=== PATIENT | female | born 1995 | race Caucasian/White ===

== ENCOUNTER 2016-07-20 04:57 | Inpatient (IN) | payer OTHER ==
[~2016-07-20] VITALS: Ht 162.6 cm; Wt 73.0 kg
[2016-07-20] MEDS ORDERED: OXYTOCIN INJ 10 UNITS/ML VIAL IM ONE (05:15)
[2016-07-20] MEDS ORDERED: SUPERCREAM 0.870 % 15GM JAR EXT PRN (05:15)
[2016-07-20] MEDS ORDERED: ACETAMINOPHEN 325 MG TAB PO PRN (05:15)
[2016-07-20] MEDS ORDERED: LANOLIN OINT EXT PRN ×2 (05:15)
[2016-07-20] MEDS ORDERED: BENZOCAINE 20% AER SPR 82.5 GM CAN EXT PRN (05:15)
[2016-07-20 05:33] VITALS: Ht 162.6 cm; Wt 73.0 kg
[2016-07-20] MEDS: IBUPROFEN 600 MG TAB PO PRN ×4 (05:53→23:24)
[2016-07-20 06:08] LABS: URINE APPEARANCE CLOUDY (CLEAR); URINE BILIRUBIN NEG (NEG); URINE COLOR DK YELLOW; URINE NITRITE POS (NEG); URINE PH 8.5 (4.5-7.5); URINE SPECIFIC GRAVITY 1.023 (1.000-1.030); UROBILINOGEN NEG (NEG)
[2016-07-20 06:22] LABS: MANUAL MICROSCOPIC REQUIRED? NO; REVIEW REQ? NO; SULFASALICYLIC ACID POS (NEG)
[2016-07-20 06:29] LABS: BENZODIAZEPINE, URINE NEG (NEG); COCAINE,URINE NEG (NEG); PHENCYCLIDINE, URINE NEG (NEG)
[2016-07-20 07:14] LABS: HEMATOCRIT 39.4 % (37-47); MEAN CELL VOLUME 86.8 fL (80-100); MEAN CORPUSCULAR HEMOGLOBIN 29.7 pg (25-34); MEAN CORPUSCULAR HGB CONC 34.3 g/dl (32-36); MEAN PLATELET VOLUME 12.1 fL (7.4-10.4); PLATELET COUNT 174 K/uL (130-400); RED BLOOD COUNT 4.54 M/uL (4.2-5.4); WHITE BLOOD COUNT 9.89 K/uL (4.8-10.8)
--- NOTE | 2016-07-20 07:19 | DELIVERY SUMMARY ---
DATE OF OPERATION: 07/20/2016 The patient is a 21-year-old white female EDC of 07/23/2016 who presented with limited care fully dilated. She apparently had seen our group until 20 weeks when she had her anatomy scan which by the way was not complete, it was missing heart views and was planning to transfer care; however, that did not happen. She presented in active labor after having called [facility] five hours ago asking what she should do because her contractions were every 4-5 minutes. They have no record of care with her although that is where she claims she was going to be getting care. Based on her records she has no other medical problems, no past surgical history. She has no known drug allergies. She did have one miscarriage which was spontaneous. On her labs blood type is 0 positive, antibody screen is negative, hemoglobin at her first visit was 13.7, hematocrit 39.3. Rubella is immune. RPR is nonreactive. Hepatitis B is negative. HIV is negative. Chlamydia and GC were negative. Cystic fibrosis was declined. She did have E coli on her initial clean-catch urine. Apparently she took the antibiotics but we cannot confirm that. One hour Glucola 16 weeks was 106. She was last seen for a doctor visit at 15 weeks and then the ultrasound at 20 weeks for anatomy, but no doctor visit to follow that. She arrived fully dilated and ruptured. She pushed effectively over an intact perineum for delivery of a viable male infant. Mouth and nasopharynx were suctioned all on the mother's abdomen as the continued to deliver after delivery of the head. There was spontaneous crying, vigorous crying and infant was moving all four limbs. There was bilateral labial abrasions that were not bleeding and not repaired. Placenta was expressed intact with a 3-vessel cord. Estimated blood loss was 200 cc. Mother and are doing well after delivery. Because of the lack of care we will get a urine drug screen as well as a cath specimen for urine culture because of her prior UTI with E coli. ' I attest to the content of the Intraoperative Record and any orders documented therein. Any exceptio ns are noted below.
[2016-07-20] MEDS: SULFAMETHOXAZOLE/TRIMETHOPRIM DS 800/160MG TAB PO SCH ×2 (07:42→20:38)
[2016-07-20] MEDS: PRENATAL VITAMIN TAB PO SCH (08:00)
[2016-07-20] MEDS: DOCUSATE SODIUM 100 MG CAP PO SCH ×2 (08:00→19:35)
[2016-07-20 12:30] VITALS: BP 130/92; PULSE 92; TEMP 36.3; O2SAT 97
[2016-07-20 15:45] VITALS: BP 125/87; PULSE 106; TEMP 36.6
[2016-07-20 19:30] VITALS: BP 139/93; PULSE 100; TEMP 36.6
--- NOTE | 2016-07-20 20:44 | Discharge Instructions ---
Discharge Instructions Date of Service Jul 20, 2016. Admission Reason for Admission: LABOR Discharge Discharge Diagnosis / Problem: Spontaneous Vaginal Delivery Discharge Goals Goal(s): Routine recovery after delivery Medications Continue Dispensed Medications: supercream, dermaplast, tucks, lansinoh Activity Recommendations Activity Limitations: per Instructions/Follow-up section . Instructions / Follow-Up Instructions / Follow-Up ACTIVITY RECOMMENDATIONS: * Gradual return to full activity over the next 2-3 weeks. * No lifting - nothing heavier than baby over the next 2-3 weeks. * Do not engage in vigorous exercise, sexual activity or sports until cleared by your physician. * Do not drive or operate any motorized equipment until cleared by your physician. * You may shower/bathe daily. MEDICATIONS: For discomfort or pain, you may use Acetaminophen (Tylenol), Ibuprofen (Advil), or Naproxen (Aleve) following the package directions. For constipation you may use Colace following the package directions. BREAST CARE: If you are not breast feeding: * Wear a supportive bra 24 hours a day for one to two weeks. * Avoid stimulating your breasts and nipples as much as possible during the first few weeks after delivery. * When taking a shower, have the warm water hit your back, not breasts. * When your breasts feel full, apply ice packs. Usually three to four times a day helps ease the discomfort. * Take a mild pain medication (Tylenol / Motrin) when you are uncomfortable. If breast feeding: * Use breast milk to lubricate nipples. Lansinoh cream may be used for sore nipples. You do not need to remove cream prior to breast feeding. If using a different brand of cream, check the label for directions regarding removal of cream prior to nursing. * Wear a supportive bra. * If having problems with breasts or breast feeding, call a solar consultant or your health care provider. EPISIOTOMY CARE: After delivery, if you have an episiotomy (stitches), the following steps will ease discomfort and aid healing. * For the first 24 hours after delivery, place ice packs next to your episiotomy to help reduce swelling. * After the first 24 hour-period, sitz baths, either portable or in the tub, are suggested. A shower with a shower arm sprayed over the episiotomy may be comforting. * Karlee care should be done after each voiding and bowel movement. Squirt warm water from a plastic bottle over the perineum (region of the body between the anus and urinary opening) and pat dry. * Use Dermoplast to ease discomfort. Shake container. [place] directly over the episiotomy. Place a Tucks on a clean sanitary pad next to your episiotomy. SPECIAL CARE INSTRUCTIONS: When you are discharged from the hospital, it is important for you to follow the instructions listed below: * During the first week at home, you should be able to care for yourself and your baby. In addition, the usual light household activities are encouraged. * Limit your activities to the way you feel. Do not try to clean the house or move furniture. Be sensible. * If you actively engage in sports and have done so up until the time of your delivery, you may resume these activities as soon as you feel able. This may take up to one month or even longer. Use good judgment. * Continue to take your vitamins for at least six weeks after the of your baby. * Your diet need not be limited unless you were on a special diet before your delivery. Breast-feeding mothers need around 2500 calories per day and at least 64-80 ounces of fluid per day (8 to 10 glasses). * You should eat foods from the four major food groups. Crash diets or fad diets are to be avoided. Eating lean meats, fresh fruits and vegetables, low-fat dairy products, high fiber foods and a regular exercise program, will help you get back to your pre- weight without putting your health at risk. * Constipation is sometimes a problem after delivery. Take a mild laxative as needed. If breast feeding, Milk of Magnesia is acceptable to use. You may use a suppository or Fleets enema if no episiotomy. * A daily shower or tub bath is suggested. Be sure to thoroughly and gently dry the perineum. * A bloody vaginal discharge will usually continue until around four weeks post . A small amount of bleeding may continue for as long as six weeks. Vaginal discharge changes from the bright red bleeding after delivery to pink then brownish and finally yellowish-pink before becoming white and disappearing. * Bleeding may increase with activity. Your first period may come in 4-8 weeks. If you are breast feeding, your period may be delayed even longer. * Tancred (sex) can begin whenever both you and your partner feel comfortable and do not have any form of genital infection. It is recommended that you wait at least six weeks for internal and external healing to occur. If you have questions, please talk to your health care practitioner. A condom should be used to prevent infection and . * Foreplay, gentle intercourse and lubrication is very important the first several times to prevent pain. A water-based lubricant such as K-Y jelly or Astroglide may be used. * If you have RH negative blood and your baby is RH positive, you will receive RHOGAM by injection prior to discharge. The nurse will give you a card to keep with you that has the date and place that you received RHOGAM after delivery. * During your care, you had a Rubella screen done to check for the presence of rubella antibodies in your blood. If your test was negative, you will receive a Rubella vaccine prior to discharge. This vaccine may cause a fever, soreness at the injection site and flu-like symptoms. If these symptoms persist, notify your health care practitioner. is not advised for one month after a Rubella vaccine. * Verbalizes understanding of car seat law as reviewed with patient nursing. * Car Seat hand-out given and reviewed with patient by nursing. * Shaken baby information reviewed with patient by nursing. Call you doctor if: * Heavy bleeding (saturating several pads an hour) or passing clots the size of your fist. * A fever >101 degrees F (38.3 degrees C) on two occasions four hours apart and /or chills. * Unusual pain in the pelvic or vaginal areas. * "Baby Blues" lasting longer than two weeks. If you have any questions or concerns, call your health care practitioner at . FOLLOW UP VISIT: * Please call the office at to schedule a 6 week examination. It is important you keep this appointment. It is important for you to make arrangements for either yearly or twice yearly check-ups thereafter. Current Hospital Diet Patient's current hospital diet: Regular OB Diet Discharge Diet Recommended Diet: Regular Diet Pending Studies Studies pending at discharge: no Medical Emergencies . Who to Call and When: Medical Emergencies: If at any time you feel your situation is an emergency, please call 911 immediately. . Non-Emergent Contact Non-Emergency issues call your: Primary Care Provider, Automation Technician . . "Provider Documentation" section prepared by Erik Millan. VTE Core Measure Inpt VTE Proph given/why not?: Treatment not indicated
[2016-07-20 21:04] VITALS: BP 118/78
[2016-07-20 23:20] VITALS: BP 119/86; PULSE 98; TEMP 36.7
[2016-07-21 03:50] VITALS: BP 124/84; PULSE 68; TEMP 36.6
[2016-07-21] MEDS: IBUPROFEN 600 MG TAB PO PRN ×2 (04:01→20:11)
[2016-07-21 06:45] LABS: HEMATOCRIT 32.8 % (37-47)
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
[2016-07-21] MEDS ORDERED: CALCIUM CARBONATE 500 MG CHEWABLE PO PRN (07:45)
[2016-07-21 07:52] VITALS: BP 111/68; PULSE 87; TEMP 36.8
[2016-07-21] MEDS: PRENATAL VITAMIN TAB PO SCH (08:20)
[2016-07-21] MEDS: SULFAMETHOXAZOLE/TRIMETHOPRIM DS 800/160MG TAB PO SCH ×2 (08:20→21:24)
[2016-07-21] MEDS: DOCUSATE SODIUM 100 MG CAP PO SCH ×2 (08:20→20:10)
[2016-07-21 15:50] VITALS: BP 134/86; PULSE 87; TEMP 37
[2016-07-21] MEDS ORDERED: BISACODYL 5 MG TABEC PO SCH (20:00)
[2016-07-21 23:15] VITALS: BP 129/87; PULSE 90; TEMP 36.7
[2016-07-22] MEDS: DOCUSATE SODIUM 100 MG CAP PO SCH (07:43)
[2016-07-22] MEDS: PRENATAL VITAMIN TAB PO SCH (07:43)
[2016-07-22] MEDS: SULFAMETHOXAZOLE/TRIMETHOPRIM DS 800/160MG TAB PO SCH (07:44)
[2016-07-22 08:00] VITALS: BP 122/76; PULSE 58; TEMP 36.8
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
[2016-07-22] MEDS ORDERED: SULF-183 PO (09:32)
[2016-07-22 11:30] VITALS: BP_DIAS 76; PULSE 58; TEMP 36.8
--- NOTE | 2016-07-31 11:31 | EDITING REQUIRED CODING QUERY ---
CODING QUERY To promote full compliance with coding requirements relating to patient care, provider participation is requested in all cases of real estate appraiser uncertainty. Please assist us with the question(s) below: Coding Question(s): Please state clinical significance/diagnosis of urine culture which resulted in growing out E. Coli and was treated with septra q 12 hours Physician's Response(s): UTI confirmed by culture on cathed urine specimen. She had been noted to have UTI earlier in which had not been treated because patient had not returned to us for care until her arrival in L&D in active labor. Thank you Marlys Grey Principal Diagnosis: "_that condition established after study, to be chiefly responsible for occasioning the admission of the patient to the hospital for care." Co-Existing Principal Diagnosis: "_when two or more diagnoses equally meet the criteria for principal diagnosis as determined by the circumstances of admission, diagnostic work up, and/or therapy provided, and the Alphabetic Index, Tabular List, or another coding guideline does not provide sequencing direction, any one of the diagnoses may be sequenced first." "When the physician has documented what appears to be a current diagnosis in the body of the record, but has not included the diagnosis in the final diagnostic statement, the physician should be asked whether the diagnosis should be added." (Source [facility] 2 QTR90. p3-4)
== END 2016-07-22 11:30 | disposition home or self-care (01) | DRG 775 ==
LOC: C.LD 04:57 → C.OBG 12:20
PROVIDERS: ADMIT Obstetrics & Gynecology; ATTEND Obstetrics & Gynecology
PROC: 10E0XZZ Delivery of Products of Conception, External Approach (ICD-10-PCS; principal; 2016-07-20)
DX: O09.33 Supervision of pregnancy with insufficient antenatal care, third trimester (principal); N39.0 Urinary tract infection, site not specified; B96.20 Unspecified Escherichia coli [E. coli] as the cause of diseases classified elsewhere; Z37.0 Single live birth; Z3A.39 39 weeks gestation of pregnancy

== ENCOUNTER → 2017-05-16 | Outpatient (CLI) | payer OTHER ==
[~2017-05-16] MED LIST: ANTI-ANXIETY MED PO; METH5TAB2 PO; Methadone PO; SERT50TA PO; SULF-302 PO
[2017-05-16 13:00] LABS: BASO % 0.5 %; BASO ABS # 0.05 K/uL (0-0.2); EOS % 0.4 %; EOS ABS # 0.04 K/uL (0-0.5); HEMATOCRIT 42.8 % (37-47); HEMOGLOBIN 14.8 g/dL (12.0-16.0); IG# 0.02 K/uL (0.00-0.02); LYMPH % 21.5 %; LYMPH ABS # 2.11 K/uL (1.2-3.4); MEAN CELL VOLUME 89.2 fL (80-100); MEAN CORPUSCULAR HEMOGLOBIN 30.8 pg (25-34); MEAN CORPUSCULAR HGB CONC 34.6 g/dl (32-36); MEAN PLATELET VOLUME 11.6 fL (7.4-10.4); MONO % 4.6 %; MONO ABS # 0.45 K/uL (0.11-0.59); NEUT % 72.8 %; NEUT ABS # 7.13 K/uL (1.4-6.5); PLATELET COUNT 263 K/uL (130-400); RED CELL DISTRIBUTION WIDTH CV 14.4 % (11.5-14.5); RED CELL DISTRIBUTION WIDTH SD 46.9 fL (36.4-46.3)
== END | disposition home or self-care (01) ==
LOC: C.LAB1850 11:43
PROVIDERS: ATTEND Obstetrics & Gynecology
DX: O09.292 Supervision of pregnancy with other poor reproductive or obstetric history, second trimester (principal)

== ENCOUNTER → 2017-07-11 | Outpatient (CLI) | payer OTHER ==
[~2017-07-11] MED LIST changes: -ANTI-ANXIETY MED PO; -METH5TAB2 PO; -Methadone PO; -SERT50TA PO
[2017-07-11 14:40] LABS: HEMATOCRIT 42.5 % (37-47); HEMOGLOBIN 14.1 g/dL (12.0-16.0)
== END | disposition home or self-care (01) ==
LOC: C.LAB1850 12:50
PROVIDERS: ATTEND Obstetrics & Gynecology
DX: O09.33 Supervision of pregnancy with insufficient antenatal care, third trimester (principal); O99.323 Drug use complicating pregnancy, third trimester

== ENCOUNTER → 2017-07-11 | Outpatient (CLI) | payer OTHER | END | disposition home or self-care (01) | LOC: C.PAPS 16:37 | PROVIDERS: ATTEND Obstetrics & Gynecology | DX: Z12.4 Encounter for screening for malignant neoplasm of cervix (principal) ==

== ENCOUNTER → 2017-07-25 | Outpatient (CLI) | payer OTHER ==
[2017-07-25 12:15] LABS: HEMATOCRIT 41.9 % (37-47); HEMOGLOBIN 14.4 g/dL (12.0-16.0)
== END | disposition home or self-care (01) ==
LOC: C.LAB1850 10:05
PROVIDERS: ATTEND Obstetrics & Gynecology
DX: O09.33 Supervision of pregnancy with insufficient antenatal care, third trimester (principal)

== ENCOUNTER → 2017-09-13 | Outpatient (CLI) | payer OTHER | END | disposition home or self-care (01) | LOC: C.LABSPEC 15:38 | PROVIDERS: ATTEND Obstetrics & Gynecology | DX: O09.33 Supervision of pregnancy with insufficient antenatal care, third trimester (principal); A74.9 Chlamydial infection, unspecified ==

== ENCOUNTER 2017-09-18 11:43 | Outpatient (CLI) | payer OTHER ==
[~2017-09-18] VITALS: Ht 167.6 cm; Wt 84.1 kg
[2017-09-18 12:21] VITALS: Ht 167.6 cm; Wt 84.1 kg
[2017-09-18] MEDS ORDERED: Methadone PO (12:30)
== END 2017-09-18 14:30 | disposition home or self-care (01) ==
LOC: C.OPB 11:43 → C.LD 11:44 → C.OPB 14:30 → EDSTATUS 09-30 11:40
PROVIDERS: ATTEND Obstetrics & Gynecology
DX: O62.9 Abnormality of forces of labor, unspecified (principal); Z3A.00 Weeks of gestation of pregnancy not specified

== ENCOUNTER 2017-09-29 08:59 | Inpatient (IN) | payer OTHER ==
[~2017-09-29] VITALS: Ht 165.1 cm; Wt 84.5 kg
[~2017-09-29 08:59] MED LIST changes: +Methadone PO; -SULF-302 PO
[2017-09-29] MEDS ORDERED: OXYTOCIN INJ 10 UNITS/ML VIAL IM ONE (09:15)
[2017-09-29] MEDS ORDERED: SUPERCREAM 0.870 % 15GM JAR EXT PRN (09:15)
[2017-09-29] MEDS ORDERED: BENZOCAINE 20% AER SPR 82.5 GM CAN EXT PRN (09:15)
[2017-09-29] MEDS ORDERED: ACETAMINOPHEN 325 MG TAB PO PRN (09:15)
[2017-09-29 09:51] VITALS: Ht 165.1 cm; Wt 84.5 kg
--- NOTE | 2017-09-29 10:06 | DELIVERY SUMMARY ---
DATE OF OPERATION: 09/29/2017 The patient is a 22-year-old 3, para 1-0-1-1 white female, EDC of 10/01/2017, who presented in active labor. Her contractions started about 0400 hours. She delivered upon arrival in labor and delivery at 0900 hours. Head was on the perineum. Membranes were ruptured for clear fluid. The infant delivered easily over intact perineum and was placed on mother's abdomen for further attention and stimulation. There was vigorous crying and the was moving all four limbs. The cord was clamped and cut and the placenta was then expressed intact with a 3-vessel cord. There were no perineal lacerations present. Estimated blood loss 200 mL. Mother and infant are doing well . I attest to the content of the Intraoperative Record and any orders documented therein. Any exception s are noted below.
[2017-09-29 14:10] VITALS: BP 131/84; PULSE 83; TEMP 36.8
[2017-09-29 16:00] VITALS: BP_SYST 131; BP_SYST 136; BP_DIAS 84; BP_DIAS 92; PULSE 81; PULSE 83; TEMP 36.8
[2017-09-29] MEDS: IBUPROFEN 600 MG TAB PO PRN (18:40)
[2017-09-29 20:30] VITALS: BP 122/86; PULSE 75; TEMP 36.9
[2017-09-29 23:25] VITALS: BP 133/84; PULSE 76; TEMP 36.7
[2017-09-30 03:30] VITALS: BP 137/90; PULSE 61; TEMP 36.6
[2017-09-30] MEDS: IBUPROFEN 600 MG TAB PO PRN (03:51)
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
--- NOTE | 2017-09-30 06:40 | Discharge Instructions ---
Discharge Instructions Date of Service September 30, 2017. Admission Reason for Admission: LABOR Discharge Discharge Diagnosis / Problem: Vaginal Delivery Discharge Goals Goal(s): Routine recovery after delivery Medications Continue Dispensed Medications: supercream, dermaplast, tucks, lansinoh Activity Recommendations Activity Limitations: per Instructions/Follow-up section . Instructions / Follow-Up Instructions / Follow-Up ACTIVITY RECOMMENDATIONS: * Gradual return to full activity over the next 2-3 weeks. * No lifting - nothing heavier than baby over the next 2-3 weeks. * Do not engage in vigorous exercise, sexual activity or sports until cleared by your physician. * Do not drive or operate any motorized equipment until cleared by your physician. * You may shower/bathe daily. MEDICATIONS: For discomfort or pain, you may use Acetaminophen (Tylenol), Ibuprofen (Advil), or Naproxen (Aleve) following the package directions. For constipation you may use Colace following the package directions. BREAST CARE: If you are not breast feeding: * Wear a supportive bra 24 hours a day for one to two weeks. * Avoid stimulating your breasts and nipples as much as possible during the first few weeks after delivery. * When taking a shower, have the warm water hit your back, not breasts. * When your breasts feel full, apply ice packs. Usually three to four times a day helps ease the discomfort. * Take a mild pain medication (Tylenol / Motrin) when you are uncomfortable. If breast feeding: * Use breast milk to lubricate nipples. Lansinoh cream may be used for sore nipples. You do not need to remove cream prior to breast feeding. If using a different brand of cream, check the label for directions regarding removal of cream prior to nursing. * Wear a supportive bra. * If having problems with breasts or breast feeding, call a insolvency consultant or your health care provider. EPISIOTOMY CARE: After delivery, if you have an episiotomy (stitches), the following steps will ease discomfort and aid healing. * For the first 24 hours after delivery, place ice packs next to your episiotomy to help reduce swelling. * After the first 24 hour-period, sitz baths, either portable or in the tub, are suggested. A shower with a shower arm sprayed over the episiotomy may be comforting. * Karlee care should be done after each voiding and bowel movement. Squirt warm water from a plastic bottle over the perineum (region of the body between the anus and urinary opening) and pat dry. * Use Dermoplast to ease discomfort. Shake container. [place] directly over the episiotomy. Place a Tucks on a clean sanitary pad next to your episiotomy. SPECIAL CARE INSTRUCTIONS: When you are discharged from the hospital, it is important for you to follow the instructions listed below: * During the first week at home, you should be able to care for yourself and your baby. In addition, the usual light household activities are encouraged. * Limit your activities to the way you feel. Do not try to clean the house or move furniture. Be sensible. * If you actively engage in sports and have done so up until the time of your delivery, you may resume these activities as soon as you feel able. This may take up to one month or even longer. Use good judgment. * Continue to take your vitamins for at least six weeks after the of your baby. * Your diet need not be limited unless you were on a special diet before your delivery. Breast-feeding mothers need around 2500 calories per day and at least 64-80 ounces of fluid per day (8 to 10 glasses). * You should eat foods from the four major food groups. Crash diets or fad diets are to be avoided. Eating lean meats, fresh fruits and vegetables, low-fat dairy products, high fiber foods and a regular exercise program, will help you get back to your pre- weight without putting your health at risk. * Constipation is sometimes a problem after delivery. Take a mild laxative as needed. If breast feeding, Milk of Magnesia is acceptable to use. You may use a suppository or Fleets enema if no episiotomy. * A daily shower or tub bath is suggested. Be sure to thoroughly and gently dry the perineum. * A bloody vaginal discharge will usually continue until around four weeks post . A small amount of bleeding may continue for as long as six weeks. Vaginal discharge changes from the bright red bleeding after delivery to pink then brownish and finally yellowish-pink before becoming white and disappearing. * Bleeding may increase with activity. Your first period may come in 4-8 weeks. If you are breast feeding, your period may be delayed even longer. * [place] (sex) can begin whenever both you and your partner feel comfortable and do not have any form of genital infection. It is recommended that you wait at least six weeks for internal and external healing to occur. If you have questions, please talk to your health care practitioner. A condom should be used to prevent infection and . * Foreplay, gentle intercourse and lubrication is very important the first several times to prevent pain. A water-based lubricant such as K-Y jelly or Astroglide may be used. * If you have RH negative blood and your baby is RH positive, you will receive RHOGAM by injection prior to discharge. The nurse will give you a card to keep with you that has the date and place that you received RHOGAM after delivery. * During your care, you had a Rubella screen done to check for the presence of rubella antibodies in your blood. If your test was negative, you will receive a Rubella vaccine prior to discharge. This vaccine may cause a fever, soreness at the injection site and flu-like symptoms. If these symptoms persist, notify your health care practitioner. is not advised for one month after a Rubella vaccine. * Verbalizes understanding of car seat law as reviewed with patient nursing. * Car Seat hand-out given and reviewed with patient by nursing. * Shaken baby information reviewed with patient by nursing. Call you doctor if: * Heavy bleeding (saturating several pads an hour) or passing clots the size of your fist. * A fever >101 degrees F (38.3 degrees C) on two occasions four hours apart and /or chills. * Unusual pain in the pelvic or vaginal areas. * "Baby Blues" lasting longer than two weeks. If you have any questions or concerns, call your health care practitioner at . FOLLOW UP VISIT: * Please call the office at to schedule a 6 week examination. It is important you keep this appointment. It is important for you to make arrangements for either yearly or twice yearly check-ups thereafter. Current Hospital Diet Patient's current hospital diet: Regular OB Diet Discharge Diet Recommended Diet: Regular Diet Pending Studies Studies pending at discharge: no Medical Emergencies . Who to Call and When: Medical Emergencies: If at any time you feel your situation is an emergency, please call [phone] immediately. . Non-Emergent Contact Non-Emergency issues call your: Primary Care Provider . . "Provider Documentation" section prepared by Doug Denise. .
[2017-09-30] MEDS ORDERED: METHADONE PO SCH (07:00)
[2017-09-30] MEDS ORDERED: PATIENT'S OWN CONTROLLED MED SCH (07:00)
[2017-09-30 07:13] LABS: HEMATOCRIT 35.4 % (37-47); HEMOGLOBIN 12.1 g/dL (12.0-16.0)
[2017-09-30 08:10] VITALS: BP 137/87; PULSE 82; TEMP 36.5; O2SAT 98
[2017-09-30] MEDS: METHADONE ORAL SOLN 2 MG/1ML PO SCH (08:10)
[2017-09-30] MEDS: PRENATAL VITAMIN TAB PO SCH (08:16)
[2017-09-30 15:38] VITALS: BP 110/73; PULSE 90; TEMP 36.8; O2SAT 96
[2017-09-30] MEDS: DOCUSATE SODIUM 100 MG CAP PO SCH (19:39)
[2017-09-30 23:30] VITALS: BP 123/75; PULSE 84; TEMP 36.5; O2SAT 97
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
[2017-10-01] MEDS: METHADONE ORAL SOLN 2 MG/1ML PO SCH (07:26)
[2017-10-01] MEDS: IBUPROFEN 600 MG TAB PO PRN (07:30)
[2017-10-01 07:40] VITALS: BP 129/88; PULSE 64; TEMP 36.5
[2017-10-01] MEDS: DOCUSATE SODIUM 100 MG CAP PO SCH (07:54)
[2017-10-01] MEDS: PRENATAL VITAMIN TAB PO SCH (07:54)
[2017-10-01] MEDS ORDERED: MEASLES, MUMPS & RUBELLA VIRUS VIAL SQ. ONE (08:00)
[2017-10-01 09:19] VITALS: BP_DIAS 88; PULSE 64; TEMP 36.5
== END 2017-10-01 09:21 | disposition home or self-care (01) | DRG 775 ==
LOC: C.LD 08:59 → C.OBG 14:11
PROVIDERS: ADMIT Obstetrics & Gynecology; ATTEND Obstetrics & Gynecology
PROC: 10907ZC Drainage of Amniotic Fluid, Therapeutic from Products of Conception, Via Natural or Artificial Opening (ICD-10-PCS; principal; 2017-09-29)
PROC: 10E0XZZ Delivery of Products of Conception, External Approach (ICD-10-PCS; principal; 2017-09-29)
DX: O80 Encounter for full-term uncomplicated delivery (principal); Z3A.39 39 weeks gestation of pregnancy; Z37.0 Single live birth